=== PATIENT | male | born 1965 | race Caucasian/White ===

== ENCOUNTER → 2024-03-07 | Day surgery (SDC) | payer OTHER ==
[~2024-03-07] MED LIST: ESMOLOL HCL 100MG/10ML 10 MG/ML VIAL ONE; GLUCAGON FOR INJ 1 MG VIAL ONE; HYOSCYAMINE SULFATE 0.5 MG/ML INJ ONE; LIDOCAINE HCL 2% LOCAL INJ 5 ML SDV VIAL INJ ONE; LOSARTAN POTAS100 MG PO; METOPROLOL SUCC50 MG PO; PROPOFOL IV EMULSION 10 MG/ML 20 ML VIAL ONE; PROPOFOL IV EMULSION 50 ML IV ONE; SIMVASTATIN40 MG PO
[2024-03-07] MEDS: LACTATED RINGER'S 1,000 ML ONE (08:39)
[2024-03-07 11:27] VITALS: BP 122/76; PULSE 82; RESP 18; O2SAT 99
== END | disposition home or self-care (01) ==
LOC: OR 08:19
PROVIDERS: ATTEND Internal Medicine Gastroenterology
DX: Z12.11 Encounter for screening for malignant neoplasm of colon (principal); D12.5 Benign neoplasm of sigmoid colon; K64.8 Other hemorrhoids; I10 Essential (primary) hypertension; E78.5 Hyperlipidemia, unspecified; Z01.810 Encounter for preprocedural cardiovascular examination; Z79.899 Other long term (current) drug therapy
CPT/HCPCS: 45385; 93005; J1610; J1980; J2003; J2704 ×2; J7121; 45378